=== PATIENT | male | born 1970 | race Caucasian/White ===

== ENCOUNTER 2017-09-22 11:07 | Emergency (ER) | payer OTHER ==
[~2017-09-22] VITALS: Ht 172.7 cm; Wt 77.1 kg
[~2017-09-22 11:07] MED LIST: HYDROCODON-ACE1 EAC7 PO
[2017-09-22] MEDS ORDERED: POLYMYXIN B/TMP10 ML OPHTHALMIC (11:44)
[2017-09-22 11:54] VITALS: BP 160/98
== END 2017-09-22 11:54 | disposition home or self-care (01) ==
LOC: M.ERS 11:07
DX: H10.89 Other conjunctivitis (principal); F17.200 Nicotine dependence, unspecified, uncomplicated

== ENCOUNTER 2017-10-21 09:36 | Emergency (ER) | payer OTHER ==
[~2017-10-21] VITALS: Ht 172.7 cm; Wt 77.1 kg
[~2017-10-21 09:36] MED LIST changes: +POLYMYXIN B/TMP10 ML OPHTHALMIC
[2017-10-21] MEDS ORDERED: POLYMYXIN B/TMP10 ML OPHTHALMIC (10:54)
[2017-10-21] MEDS ORDERED: CYCLOGYL2 M1 OPHTHALMIC (10:54)
[2017-10-21 11:21] VITALS: BP 129/96
== END 2017-10-21 11:22 | disposition home or self-care (01) ==
LOC: M.ERS 09:36
DX: H57.8 Other specified disorders of eye and adnexa (principal)